=== PATIENT | female | born 1985 | race Hispanic/Latino ===

== ENCOUNTER 2022-12-03 08:03 | Emergency (ER) | payer OTHER ==
[~2022-12-03] VITALS: Ht 167.6 cm; Wt 70.8 kg
[2022-12-03 08:03] VITALS: BP 142/77
[2022-12-03] MEDS ORDERED: ZOFRAN IV STA (08:19)
[2022-12-03] MEDS ORDERED: MORPHINE SULFATE IV STA (08:19)
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
[2022-12-03 08:35] LABS: MEAN CORP HGB 22.3 pg (26-34); RED CELL DISTRIBUTION WIDTH 15.8 % (11.5-14.5)
--- NOTE | 2022-12-03 08:45 | NUR ---
BED MITCHELL PATIENT WAS ASSISTED WITH USE OF BED MITCHELL. PATIENT TOLERATED PLACEMENT OF BEDPAN WITH NO DISCOMFORT. x1 VOID, CLEAR, YELLOW, STRONG URINE.
[2022-12-03 08:57] VITALS: BP 140/76
[2022-12-03] MEDS ORDERED: ZOFRAN ONE ×2 (09:04→09:12)
[2022-12-03] MEDS ORDERED: MORPHINE SULFATE ONE (09:05)
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
[2022-12-03 09:42] VITALS: BP 139/84
== END 2022-12-03 09:48 | disposition home or self-care (01) ==
LOC: ER 08:03
DX: S10.93XA Contusion of unspecified part of neck, initial encounter (principal); S20.219A Contusion of unspecified front wall of thorax, initial encounter; S30.1XXA Contusion of abdominal wall, initial encounter; S20.229A Contusion of unspecified back wall of thorax, initial encounter; S09.90XA Unspecified injury of head, initial encounter; F32.A Depression, unspecified; V89.2XXA Person injured in unspecified motor-vehicle accident, traffic, initial encounter; Y93.89 Activity, other specified; Y92.89 Other specified places as the place of occurrence of the external cause; Y99.8 Other external cause status
CPT/HCPCS: 99285; 70450; 96374; 96375; 71260; 72125; 74177; 80053; 85027; 36415; 85610; 85730; 84703; J2405 ×2; Q9965

== ENCOUNTER 2024-08-01 18:40 | Emergency (ER) | payer MEDICAID, SELFPAY ==
[~2024-08-01] VITALS: Ht 160 cm; Wt 72.6 kg
[2024-08-01 19:40] LABS: BILIRUBIN,URINE NEGATIVE (NEGATIVE); LEUKOCYTE ESTERASE ,URINE 1+ (NEGATIVE); NITRATE,URINE NEGATIVE (NEGATIVE); UROBILINOGEN,URINE 0.2 E.U./dL (0.2)
[2024-08-01 19:41] LABS: APPEARANCE,URINE CLOUDY; UA COLOR DARK AMBER
[2024-08-01 19:49] VITALS: BP 122/84; PULSE 102; RESP 18; TEMP 98.2; O2SAT 100
[2024-08-01 19:52] LABS: BASOPHIL # 0.1 10^3/uL (0.0-0.1); BASOPHIL % 0.6 % (0.1-1.2); EOSINOPHIL # 0.1 10^3/uL (0.0-0.2); EOSINOPHIL % 1.5 % (0.0-5.0); HEMATOCRIT(ML) 38.1 % (36.0-46.0); HEMOGLOBIN 11.8 g/dL (12.0-15.0); LYMPHOCYTES # 2.46 10^3/uL1 (1.0-4.8); LYMPHOCYTES % 29.3 % (24.0-44.0); MEAN CORP HGB 24.8 pg (26-34); MEAN CORP VOLUME 80.2 fL (78-100); MONOCYTES # 0.4 10^3/uL (0.3-0.8); MONOCYTES % 5.1 % (5.0-12.0); NEUTROPHIL # 5.3 10^3/uL (1.8-7.7); NEUTROPHILS % 63.4 % (41.0-85.0); PLATELET COUNT 332 10^3/uL (150-400); RED BLOOD CELL 4.75 10^6/uL (4.00-5.20); RED CELL DISTRIBUTION WIDTH 15.3 % (11.5-14.5); WHITE BLOOD CELL 8.4 10^3/uL (4.5-11.0)
[2024-08-01 19:53] LABS: +ADD MANUAL DIFF(NO CHRG) NO
[2024-08-01 20:08] LABS: ALBUMIN(ML) 3.8 g/dL (3.4-5.0); ALBUMIN/GLOBULIN RATIO 0.883; ANION GAP 15.4; BUN/CREATININE RATIO 19.4 (10.0-20.0); CALCIUM 8.8 mg/dL (8.4-10.5); CARBON DIOXIDE 26.6 mmol/L (20.0-32); CREATININE SERUM 0.67 mg/dL (0.59-1.40); EST GFR, NON-AA 99.6 (>/=60)
[2024-08-01] MEDS: TORADOL IV STA (20:20)
[2024-08-01] MEDS: FLOMAX PO STA (20:20)
[2024-08-01] MEDS: ROCEPHIN 2,000 MG in NS 100ML 100 ML IV STA (20:20)
[2024-08-01] MEDS ORDERED: NS 100ML 100 ML IV ONE (20:23)
[2024-08-01] MEDS ORDERED: TORADOL ONE (20:23)
[2024-08-01] MEDS ORDERED: FLOMAX PO ONE (20:23)
[2024-08-01] MEDS ORDERED: ROCEPHIN ONE (20:23)
[2024-08-01 20:29] VITALS: BP 118/78; PULSE 89; RESP 18; TEMP 98.2; O2SAT 100
== END 2024-08-01 20:32 | disposition home or self-care (01) ==
LOC: ER 18:40
DX: N39.0 Urinary tract infection, site not specified (principal)
CPT/HCPCS: 99284; 96365; 96375; 87086; 80053; 85025; 36415; 81001; 83690; 87077; 84703; 87186; J0696 ×2; J1885; J8499; 99283

== ENCOUNTER 2024-08-10 22:50 | Emergency (ER) | payer SELFPAY, MEDICAID ==
[~2024-08-10] VITALS: Ht 160 cm; Wt 72.6 kg
[2024-08-10] MEDS ORDERED: ZOFRAN ONE (22:59)
[2024-08-10] MEDS ORDERED: TORADOL ONE (22:59)
[2024-08-10 23:04] VITALS: BP 100/75; PULSE 80; RESP 18; TEMP 98.3; O2SAT 97
[2024-08-10] MEDS: TORADOL IV STA (23:19)
[2024-08-10] MEDS: ZOFRAN IV STA (23:19)
[2024-08-10 23:32] LABS: BASOPHIL # 0.1 10^3/uL (0.0-0.1); BASOPHIL % 0.6 % (0.1-1.2); EOSINOPHIL # 0.2 10^3/uL (0.0-0.2); EOSINOPHIL % 1.9 % (0.0-5.0); HEMATOCRIT(ML) 36.7 % (36.0-46.0); HEMOGLOBIN 11.8 g/dL (12.0-15.0); LYMPHOCYTES # 3.15 10^3/uL1 (1.0-4.8); LYMPHOCYTES % 36.6 % (24.0-44.0); MEAN CORP HGB 25.3 pg (26-34); MEAN CORP HGB CONCENTRATION 32.2 g/dL (33-36.5); MEAN CORP VOLUME 78.8 fL (78-100); MONOCYTES # 0.6 10^3/uL (0.3-0.8); MONOCYTES % 6.9 % (5.0-12.0); NEUTROPHIL # 4.7 10^3/uL (1.8-7.7); NEUTROPHILS % 53.9 % (41.0-85.0); PLATELET COUNT 314 10^3/uL (150-400); RED BLOOD CELL 4.66 10^6/uL (4.00-5.20); RED CELL DISTRIBUTION WIDTH 14.8 % (11.5-14.5); WHITE BLOOD CELL 8.6 10^3/uL (4.5-11.0)
[2024-08-10 23:34] LABS: BILIRUBIN,URINE NEGATIVE (NEGATIVE); LEUKOCYTE ESTERASE ,URINE 1+ (NEGATIVE); NITRATE,URINE NEGATIVE (NEGATIVE); PH,URINE 6.5 (4.5-8.0); UROBILINOGEN,URINE 0.2 E.U./dL (0.2)
[2024-08-10 23:44] LABS: PROTHROMBIN PROTIME 10.2 SEC (9.7-11.6)
[2024-08-10 23:46] LABS: +ADD MANUAL DIFF(NO CHRG) NO
[2024-08-10 23:47] LABS: APPEARANCE,URINE TURBID; UA COLOR YELLOW
[2024-08-10 23:49] LABS: ALBUMIN(ML) 3.6 g/dL (3.4-5.0); ALBUMIN/GLOBULIN RATIO 0.878; ANION GAP 12.5; CALCIUM 8.3 mg/dL (8.4-10.5); CARBON DIOXIDE 26.5 mmol/L (20.0-32); CREATININE SERUM 0.64 mg/dL (0.59-1.40); EST GFR, NON-AA 104.4 (>/=60)
[2024-08-11 00:46] VITALS: BP 105/76; PULSE 82; RESP 18; TEMP 98.3; O2SAT 97
[2024-08-11] MEDS ORDERED: NS 100ML 100 ML IV ONE (01:42)
[2024-08-11] MEDS ORDERED: ROCEPHIN ONE (01:42)
[2024-08-11] MEDS: ROCEPHIN 2,000 MG in NS 100ML 100 ML IV STA (01:49)
[2024-08-11 01:56] VITALS: BP 109/66; PULSE 79; RESP 18; TEMP 98.3; O2SAT 96
== END 2024-08-11 01:58 ==
LOC: ER 22:50
DX: N39.0 Urinary tract infection, site not specified (principal); K59.00 Constipation, unspecified; Z98.890 Other specified postprocedural states
CPT/HCPCS: 99285; 74176; 96374; 96375 ×2; 87086; 80053; 85025; 36415; 81001; 83690; 85610; 85730; 84703; J2405; J1885; J0696 ×2; 96365